=== PATIENT | female | born 1990 | race Two or more races ===

== ENCOUNTER 2025-01-31 08:00 | Outpatient (CLI) | payer OTHER ==
[~2025-01-31] VITALS: Ht 162.6 cm; Wt 56.7 kg
[~2025-01-31 08:00] MED LIST: CLARITIN5 MG PO
[2025-01-31 09:03] LABS: URINE APPEARANCE Cloudy; URINE BILIRRUBIN Negative (NEGATIVE); URINE BLOOD Large; URINE COLOR Orange; URINE GLUCOSE Negative (NEGATIVE); URINE KETONE Negative (NEGATIVE); URINE LEUKOCYTE Trace; URINE NITRATE Negative; URINE PROTEIN 30 (NEGATIVE); URINE UROBILINOGEN 0.2 E.U./dl
[2025-01-31 09:04] LABS: URINE BACTERIA 172.8 uL (0.0-1933); URINE EPITHELIAL CELLS 11.8 uL (0.0-38.8); URINE WBC 50.0 uL (0.0-23.2)
[2025-01-31 09:05] LABS: BASO % 0.1 % (0.1-1.2); EOS # 0.06 (0.04-0.54); EOS % 0.6 % (0.7-7.0); LYMPH # 1.10 (1.18-3.74); LYMPH % 11.3 % (19.3-53.1); MEAN PLATELET VOLUME 10.10 fl (9.4-12.4); MONO # 0.72 (0.24-0.82); MONO % 7.4 % (4.7-12.5); NEUT # 7.78 (1.56-6.13); NEUT % 80.0 % (34.0-71.1); RED CELL DISTRIBUTION WIDTH 15.9 % (11.6-14.4); URINE CAST 0.43 uL (0.0-1.40)
[2025-01-31 09:17] LABS: COVID-19 AG NEGATIVE (NEGATIVE)
[2025-01-31] MEDS ORDERED: VITAMIN D310 MC4 (09:29)
[2025-01-31] MEDS ORDERED: TOPROL XL50 M1 PO (09:29)
[2025-01-31 09:35] LABS: INR 1.11
[2025-01-31 09:38] LABS: BUN CREA RATIO 9.0 (7.0-25.0); CREATININE SERUM 0.97 mg/dL (0.55-1.02); GFR 65.74; GLUCOSE FASTING 103.0 mg/dL (65-100); OSMOLALITY SERUM 273.0 MOSM/KG (275-295)
[2025-01-31 09:41] VITALS: BP 118/81
[2025-01-31 12:08] LABS: RH POSITIVE
[2025-02-06] MEDS ORDERED: CEFAZOLIN SODIUM 1,000 MG VIAL ONE (10:38)
== END 2025-01-31 08:01 | disposition home or self-care (01) ==
LOC: LAB 08:00 → EDSTATUS 02-06 07:30 → SURH 02-06 07:30
PROVIDERS: ATTEND Urology
DX: C64.1 Malignant neoplasm of right kidney, except renal pelvis (principal)

== ENCOUNTER 2025-02-04 10:49 | Inpatient (IN) | payer OTHER ==
[~2025-02-04] VITALS: Ht 170.2 cm; Wt 63.5 kg
[~2025-02-04 10:49] MED LIST changes: +TOPROL XL50 M1 PO; +VITAMIN D310 MC4
--- NOTE | 2025-02-04 11:13 | NUR ---
PACIENTE FEMENINA ALERTA Y ORIENTADA X3, REFIERE ABUDANTE SANGRADO AL ORINAR Y VOMITOS Y DOLOR ABDOMINAL.
[2025-02-04] MEDS ORDERED: 0.9 % SODIUM CHLORIDE 1,000 ML IV ONE (11:30)
[2025-02-04] MEDS ORDERED: MORPHINE SULFATE 4 MG/ML VIAL IV ONE (11:30)
[2025-02-04] MEDS ORDERED: FAMOtidine 10 MG/ML (4ML VIAL) IV ONE (11:30)
--- NOTE | 2025-02-04 11:38 | NUR ---
SE ORIENTA PTE SOBRE TX A SEGUIR, LA MISMA REFIERE ENTENDER. SE MEDINA MUESTRA DE LAB, SE CANALIZA Y SE ADMINISTRA MED NEISHA ORDEN MEDICA
[2025-02-04 11:43] LABS: BASO % 0.2 % (0.1-1.2); EOS # 0.06 (0.04-0.54); EOS % 0.7 % (0.7-7.0); LYMPH # 1.11 (1.18-3.74); LYMPH % 12.1 % (19.3-53.1); MEAN PLATELET VOLUME 9.30 fl (9.4-12.4); MONO # 0.77 (0.24-0.82); MONO % 8.4 % (4.7-12.5); NEUT # 7.16 (1.56-6.13); NEUT % 78.2 % (34.0-71.1); RED CELL DISTRIBUTION WIDTH 16.1 % (11.6-14.4)
[2025-02-04 12:10] LABS: ALT/SGPT 23.0 U/L (12-78); AST/SGOT 10.0 U/L (15-37); BILIRUBIN TOTAL 0.4 mg/dL (0.3-1.2); BUN CREA RATIO 14.0 (7.0-25.0); CREATININE SERUM 1.0 mg/dL (0.55-1.02); GFR 63.47; GLOBULINA 4.7 G/DL (2.4-3.5); GLUCOSE FASTING 147.0 mg/dL (65-100); OSMOLALITY SERUM 275.0 MOSM/KG (275-295)
[2025-02-04 12:31] LABS: INR 1.14
[2025-02-04 14:20] LABS: URINE APPEARANCE Clear; URINE BILIRRUBIN Negative (NEGATIVE); URINE BLOOD Large; URINE COLOR Red; URINE GLUCOSE Negative (NEGATIVE); URINE KETONE Negative (NEGATIVE); URINE LEUKOCYTE Trace; URINE NITRATE Negative; URINE UROBILINOGEN 0.2 E.U./dl
[2025-02-04 14:24] LABS: URINE BACTERIA 766.7 uL (0.0-1933); URINE EPITHELIAL CELLS 10.1 uL (0.0-38.8); URINE WBC 32.1 uL (0.0-23.2)
[2025-02-04 14:30] LABS: URINE CAST 0.29 uL (0.0-1.40); URINE PROTEIN 300 (NEGATIVE); URINE RBC > 10558.9 uL (0.0-20.8)
[2025-02-04] MEDS ORDERED: KETOROLAC TROMETHAMINE 30 MG VIAL IV ONE (14:30)
[2025-02-04] MEDS ORDERED: POTASSIUM CHLORIDE 20MEQ/100ML H2O PB IV ONE (17:30)
[2025-02-04] MEDS ORDERED: ONDANSETRON HCL 4 MG in 0.9 % SODIUM CHLORIDE 50 ML IV PRN (17:30)
[2025-02-04] MEDS ORDERED: 0.9 % SODIUM CHLORIDE 1,000 ML IV SCH (17:30)
[2025-02-04] MEDS ORDERED: ACETAMINOPHEN 500 MG GEL..CAP PO PRN (17:30)
[2025-02-04] MEDS ORDERED: ONDANSETRON HCL 4 MG in 0.9 % SODIUM CHLORIDE 50 ML IV ONE (17:30)
[2025-02-04] MEDS ORDERED: FAMOTIDINE/PF 20 MG in 0.9 % SODIUM CHLORIDE 8 ML IV PUSH SCH (21:00)
[2025-02-04 21:04] VITALS: BP 150/83; O2SAT 99
[2025-02-05] VITALS (10 sets, daily range): BP systolic 116–133; BP diastolic 65–84; O2SAT 90–99
[2025-02-05] MEDS ORDERED: METOPROLOL SUCCINATE 50 MG TAB.SR.24H PO SCH (09:00)
[2025-02-05] MEDS ORDERED: IRON FUM,PS/FOLIC/BCOMP,C NO.9 1 CAP CAPSULE PO SCH (09:00)
[2025-02-05] MEDS ORDERED: MAGNESIUM HYDROXIDE 30 ML BLIST.PACK PO STA (13:53)
[2025-02-05 23:44] LABS: BASO % 0.2 % (0.1-1.2); EOS # 0.28 (0.04-0.54); EOS % 2.7 % (0.7-7.0); LYMPH # 1.38 (1.18-3.74); LYMPH % 13.4 % (19.3-53.1); MEAN PLATELET VOLUME 10.60 fl (9.4-12.4); MONO # 0.91 (0.24-0.82); MONO % 8.8 % (4.7-12.5); NEUT # 7.68 (1.56-6.13); NEUT % 74.5 % (34.0-71.1); RED CELL DISTRIBUTION WIDTH 16.1 % (11.6-14.4)
[2025-02-05 23:59] LABS: BUN CREA RATIO 12.0 (7.0-25.0); CREATININE SERUM 0.91 mg/dL (0.55-1.02); GFR 70.76; GLUCOSE FASTING 98.0 mg/dL (65-100); OSMOLALITY SERUM 277.0 MOSM/KG (275-295)
[2025-02-06] VITALS (7 sets, daily range): BP systolic 126–133; BP diastolic 80–82; O2SAT 93–98
[2025-02-06] MEDS ORDERED: SUGAMMADEX SODIUM 200 MG/2 ML VIAL IV ONE ×3 (12:07→20:15)
[2025-02-06] MEDS ORDERED: HEMOSTATIC MATRIX 1 KIT KIT TOP ONE (12:08)
[2025-02-06] MEDS ORDERED: SURGIFLO APPLICATOR 1 EACH APPL TOP ONE ×2 (12:08→20:15)
[2025-02-06] MEDS ORDERED: BUPIVACAINE HCL/MPF 0.5% 30ML VIAL ONE (12:08)
[2025-02-06] MEDS ORDERED: CEFAZOLIN SODIUM 1,000 MG VIAL IV ONE (14:30)
[2025-02-06] MEDS ORDERED: MORPHINE SULFATE 4 MG/ML VIAL IV ONE ×2 (20:00→20:40)
[2025-02-06 20:31] LABS: BASO % 0.2 % (0.1-1.2); EOS # 0.02 (0.04-0.54); EOS % 0.1 % (0.7-7.0); LYMPH # 0.89 (1.18-3.74); LYMPH % 6.6 % (19.3-53.1); MEAN PLATELET VOLUME 9.50 fl (9.4-12.4); MONO # 0.62 (0.24-0.82); MONO % 4.6 % (4.7-12.5); NEUT # 11.82 (1.56-6.13); NEUT % 88.0 % (34.0-71.1); RED CELL DISTRIBUTION WIDTH 16.3 % (11.6-14.4)
[2025-02-06] MEDS ORDERED: FAMOTIDINE/PF 20 MG/2 ML VIAL ONE (21:06)
[2025-02-06 21:13] LABS: BUN CREA RATIO 10.0 (7.0-25.0); CREATININE SERUM 1.18 mg/dL (0.55-1.02); GFR 52.43; GLUCOSE FASTING 124.0 mg/dL (65-100); OSMOLALITY SERUM 286.0 MOSM/KG (275-295)
[2025-02-06] MEDS ORDERED: GABAPENTIN 300 MG CAPSULE PO SCH (21:59)
[2025-02-06] MEDS ORDERED: MORPHINE SULFATE 4 MG/ML CARTRIDGE IV PRN (22:00)
[2025-02-07] VITALS (10 sets, daily range): BP systolic 101–116; BP diastolic 64–76; O2SAT 95–99
[2025-02-07] MEDS ORDERED: ACETAMINOPHEN 500 MG GEL..CAP PO SCH
[2025-02-07 13:41] LABS: BASO % 0.1 % (0.1-1.2); EOS # 0.18 (0.04-0.54); EOS % 1.7 % (0.7-7.0); LYMPH # 1.31 (1.18-3.74); LYMPH % 12.5 % (19.3-53.1); MEAN PLATELET VOLUME 10.10 fl (9.4-12.4); MONO # 0.72 (0.24-0.82); MONO % 6.9 % (4.7-12.5); NEUT # 8.16 (1.56-6.13); NEUT % 78.2 % (34.0-71.1); RED CELL DISTRIBUTION WIDTH 16.8 % (11.6-14.4)
[2025-02-07 14:21] LABS: BUN CREA RATIO 12.0 (7.0-25.0); CREATININE SERUM 1.07 mg/dL (0.55-1.02); GFR 58.7; GLUCOSE FASTING 125.0 mg/dL (65-100); OSMOLALITY SERUM 285.0 MOSM/KG (275-295)
[2025-02-07] MEDS ORDERED: MORPHINE SULFATE 4 MG/ML CARTRIDGE IV PRN (18:45)
[2025-02-07] MEDS ORDERED: POLYETHYLENE GLYCOL 3350 17 GM BLIST.PACK PO SCH (21:00)
[2025-02-08] VITALS (7 sets, daily range): BP systolic 107–126; BP diastolic 67–75; O2SAT 98–100
[2025-02-08] MEDS ORDERED: AMINO ACIDS/PROTEIN HYDROLYS 30 ML BLIST.PACK PO SCH (09:00)
[2025-02-08] MEDS ORDERED: ENOXAPARIN SODIUM 40 MG/0.4 ML SYRINGE SUBCUTANEO STA (14:10)
[2025-02-09] VITALS (9 sets, daily range): BP systolic 116–152; BP diastolic 73–82; O2SAT 90–100
[2025-02-09] MEDS ORDERED: ENOXAPARIN SODIUM 40 MG/0.4 ML SYRINGE SUBCUTANEO SCH (09:00)
[2025-02-10] VITALS (8 sets, daily range): BP systolic 134; BP diastolic 66–89; O2SAT 88–100
[2025-02-10 08:14] LABS: BASO % 0.2 % (0.1-1.2); EOS # 0.30 (0.04-0.54); EOS % 3.6 % (0.7-7.0); LYMPH # 1.59 (1.18-3.74); LYMPH % 19.2 % (19.3-53.1); MEAN PLATELET VOLUME 10.30 fl (9.4-12.4); MONO # 0.80 (0.24-0.82); MONO % 9.7 % (4.7-12.5); NEUT # 5.50 (1.56-6.13); NEUT % 66.7 % (34.0-71.1); RED CELL DISTRIBUTION WIDTH 17.2 % (11.6-14.4)
[2025-02-10 08:44] LABS: BUN CREA RATIO 18.0 (7.0-25.0); CREATININE SERUM 0.74 mg/dL (0.55-1.02); GFR 89.84; GLUCOSE FASTING 78.0 mg/dL (65-100); OSMOLALITY SERUM 288.0 MOSM/KG (275-295)
[2025-02-10] MEDS ORDERED: MORPHINE SULFATE 4 MG/ML CARTRIDGE IV PRN (22:15)
[2025-02-11] VITALS (9 sets, daily range): BP systolic 129–140; BP diastolic 74–84; O2SAT 90–100
[2025-02-11 09:26] LABS: ABG PH 7.423 (7.35-7.45); ABG PO2 81.8 mmHg (80-100); BICARBONATE 24.2 mmol/l (23-25)
[2025-02-11 09:27] LABS: o2 21 %
[2025-02-11 12:36] LABS: BASO % 0.2 % (0.1-1.2); EOS # 0.23 (0.04-0.54); EOS % 2.6 % (0.7-7.0); LYMPH # 1.18 (1.18-3.74); LYMPH % 13.2 % (19.3-53.1); MEAN PLATELET VOLUME 10.00 fl (9.4-12.4); MONO # 0.66 (0.24-0.82); MONO % 7.4 % (4.7-12.5); NEUT # 6.78 (1.56-6.13); NEUT % 76.0 % (34.0-71.1); RED CELL DISTRIBUTION WIDTH 17.0 % (11.6-14.4)
[2025-02-11 14:06] LABS: ALT/SGPT 39.0 U/L (12-78); AST/SGOT 28.0 U/L (15-37); BILIRUBIN TOTAL 0.42 mg/dL (0.3-1.2); BUN CREA RATIO 17.0 (7.0-25.0); CREATININE SERUM 0.6 mg/dL (0.55-1.02); GFR 114.43; GLOBULINA 3.4 G/DL (2.4-3.5); GLUCOSE FASTING 79.0 mg/dL (65-100); OSMOLALITY SERUM 281.0 MOSM/KG (275-295)
[2025-02-12] VITALS (9 sets, daily range): BP systolic 119–126; BP diastolic 69–79; O2SAT 90–100
[2025-02-12] MEDS ORDERED: MAGNESIUM SULFATE IN WATER 50 ML IV NR (08:00)
[2025-02-12] MEDS ORDERED: MORPHINE SULFATE 4 MG/ML VIAL IV PRN (22:15)
[2025-02-13 01:00] VITALS: O2SAT 99
[2025-02-13 02:18] VITALS: BP 128/68; O2SAT 98
[2025-02-13 08:22] VITALS: BP 127/83; O2SAT 97
[2025-02-13 09:02] VITALS: O2SAT 99
== END 2025-02-13 12:29 | disposition home or self-care (01) | DRG 657 ==
LOC: ER 10:49 → MEDI 17:55 → MEDJ 17:55 → MEDI 02-05 13:34
PROVIDERS: General Practice; Internal Medicine Geriatric Medicine; ADMIT Urology; ATTEND Urology
PROC: B246ZZZ Ultrasonography of Right and Left Heart (ICD-10-PCS; 2025-02-04)
PROC: 8E0ZXY6 Isolation (ICD-10-PCS; 2025-02-04)
PROC: 4A12X4Z Monitoring of Cardiac Electrical Activity, External Approach (ICD-10-PCS; 2025-02-04)
PROC: 30233N1 Transfusion of Nonautologous Red Blood Cells into Peripheral Vein, Percutaneous Approach (ICD-10-PCS; 2025-02-05)
PROC: 07BC4ZZ Excision of Pelvis Lymphatic, Percutaneous Endoscopic Approach (ICD-10-PCS; 2025-02-06)
PROC: 8E0W4CZ Robotic Assisted Procedure of Trunk Region, Percutaneous Endoscopic Approach (ICD-10-PCS; 2025-02-06)
PROC: 0TT04ZZ Resection of Right Kidney, Percutaneous Endoscopic Approach (ICD-10-PCS; principal; 2025-02-06 14:15)
PROC: 4A033R1 Measurement of Arterial Saturation, Peripheral, Percutaneous Approach (ICD-10-PCS; 2025-02-11)
DX: C64.1 Malignant neoplasm of right kidney, except renal pelvis (principal); I47.29 Other ventricular tachycardia; J93.9 Pneumothorax, unspecified; J95.89 Other postprocedural complications and disorders of respiratory system, not elsewhere classified; R31.9 Hematuria, unspecified; R68.89 Other general symptoms and signs; Z82.49 Family history of ischemic heart disease and other diseases of the circulatory system; Z95.810 Presence of automatic (implantable) cardiac defibrillator
CPT/HCPCS: 50545; 93306; 93228; 36430; 82805; 36600; S2900

== ENCOUNTER 2025-02-18 16:38 | Inpatient (IN) | payer OTHER ==
[~2025-02-18] VITALS: Ht 162.6 cm; Wt 58.1 kg
--- NOTE | 2025-02-18 17:20 | NUR ---
PACIENTE FEMINA DE 34 ANOS DE EDAD ALERTA Y ORIENTADA X3 EN COMPANIA DE FAMILIAR. PACIENTE REFIERE SENTIR TAMRA DOLOR DE ESPALDA DESDE HACE VARIOS GERARDO QUE SE GAMA INTENSIFICADO EL WESLEY DE [place]Y. PACIENTE FUE OPERADA EL WESLEY [address] PALACIOS DE FEI NEFROCTOMIA RADICAL DERECHA. SE MONITOREAN S/V Y SE UBICA PACIENTE.
[2025-02-18] MEDS ORDERED: MORPHINE SULFATE 4 MG/ML CARTRIDGE IV ONE (18:15)
[2025-02-18] MEDS ORDERED: 0.9 % SODIUM CHLORIDE 1,000 ML IV ONE (18:15)
[2025-02-18 18:43] LABS: BASO % 0.4 % (0.1-1.2); EOS # 0.27 (0.04-0.54); EOS % 2.4 % (0.7-7.0); LYMPH # 1.71 (1.18-3.74); LYMPH % 15.1 % (19.3-53.1); MEAN PLATELET VOLUME 9.20 fl (9.4-12.4); MONO # 0.68 (0.24-0.82); MONO % 6.0 % (4.7-12.5); NEUT # 8.51 (1.56-6.13); NEUT % 75.3 % (34.0-71.1); RED CELL DISTRIBUTION WIDTH 17.6 % (11.6-14.4)
[2025-02-18 18:45] LABS: ERYTHROCYTE SEDIMENTATION RATE 116 mm/hr (0-20)
--- NOTE | 2025-02-18 18:50 | NUR ---
SE EDUCA A PACIENTE SOBRE TRATAMIENTO MEDICO EL CUAL REFIERE ENTENDER, SE REALIZA MEDINA DE MUESTRAS NEISHA ORDEN MEDICA Y SE ADMINISTRA MEDICAMENTOS BAJO MEDIDAS ASEPTICAS Y NEISHA ORDEN MEDICA.
[2025-02-18 19:10] LABS: INR 1.1
[2025-02-18 19:18] LABS: ALT/SGPT 25.0 U/L (12-78); AST/SGOT 11.0 U/L (15-37); BILIRUBIN TOTAL 0.35 mg/dL (0.3-1.2); BUN CREA RATIO 18.0 (7.0-25.0); CREATININE SERUM 0.9 mg/dL (0.55-1.02); GFR 71.67; GLOBULINA 5.0 G/DL (2.4-3.5); GLUCOSE FASTING 104.0 mg/dL (65-100); OSMOLALITY SERUM 283.0 MOSM/KG (275-295)
[2025-02-18] MEDS ORDERED: 0.9 % SODIUM CHLORIDE 1,000 ML IV SCH (19:45)
[2025-02-18] MEDS ORDERED: ENOXAPARIN SODIUM 40 MG/0.4 ML SYRINGE SUBCUTANEO SCH (19:49)
[2025-02-18] MEDS ORDERED: MORPHINE SULFATE 2 MG/ML SYRINGE IV PRN (20:00)
[2025-02-18] MEDS ORDERED: ONDANSETRON HCL 2 MG/ML VIAL IV PRN (20:00)
[2025-02-18] MEDS ORDERED: GABAPENTIN 300 MG CAPSULE PO SCH (21:00)
[2025-02-18] MEDS ORDERED: FAMOTIDINE/PF 20 MG/2 ML VIAL IV SCH (21:00)
[2025-02-18] MEDS ORDERED: LIDOCAINE 1 EACH ADH..PATCH TOP SCH (21:00)
[2025-02-18 21:08] LABS: URINE APPEARANCE Clear; URINE BILIRRUBIN Negative (NEGATIVE); URINE COLOR Yellow; URINE GLUCOSE Negative (NEGATIVE); URINE KETONE Negative (NEGATIVE); URINE LEUKOCYTE Negative; URINE NITRATE Negative; URINE PROTEIN Negative (NEGATIVE); URINE UROBILINOGEN 0.2 E.U./dl
[2025-02-18 21:13] LABS: URINE BACTERIA 188.2 uL (0.0-1933); URINE EPITHELIAL CELLS 3.5 uL (0.0-38.8); URINE RBC 28.4 uL (0.0-20.8); URINE WBC 6.1 uL (0.0-23.2)
[2025-02-18] MEDS ORDERED: PIPERACILLIN/TAZOBACTAM SODIUM 3.375 GM in 0.9 % SODIUM CHLORIDE 100 ML IV SCH (21:16)
[2025-02-18] MEDS ORDERED: ORPHENADRINE CITRATE 30 MG/ML AMPUL IM STA (21:28)
[2025-02-18 21:35] LABS: URINE BLOOD TRACE; URINE CAST 0.14 uL (0.0-1.40)
[2025-02-19 02:44] VITALS: BP 118/65
[2025-02-19 03:58] VITALS: BP 102/66; O2SAT 100
[2025-02-19] MEDS ORDERED: METOPROLOL SUCCINATE 50 MG TAB.SR.24H PO SCH (09:00)
[2025-02-19 10:37] LABS: ALT/SGPT 22.0 U/L (12-78); AST/SGOT 11.0 U/L (15-37); BILIRUBIN TOTAL 0.35 mg/dL (0.3-1.2); BUN CREA RATIO 15.0 (7.0-25.0); CREATININE SERUM 0.82 mg/dL (0.55-1.02); GFR 79.8; GLOBULINA 4.0 G/DL (2.4-3.5); GLUCOSE FASTING 92.0 mg/dL (65-100); OSMOLALITY SERUM 279.0 MOSM/KG (275-295); TSH 2.14 uIU/mL (0.358-3.74)
[2025-02-19 10:50] VITALS: BP 130/80; O2SAT 98
[2025-02-19 11:05] LABS: ABG PH 7.462 (7.35-7.45); ABG PO2 98.8 mmHg (80-100); BICARBONATE 23.1 mmol/l (23-25)
[2025-02-19 11:06] LABS: o2 21 %
[2025-02-19 16:00] VITALS: BP 119/75; O2SAT 96
[2025-02-19] MEDS ORDERED: GABAPENTIN 600 MG TABLET PO ONE (17:31)
[2025-02-19] MEDS ORDERED: LIDOCAINE 1 EACH ADH..PATCH TOP SCH (21:00)
[2025-02-19] MEDS ORDERED: GABAPENTIN 600 MG TABLET PO SCH (21:00)
[2025-02-19] MEDS ORDERED: ORPHENADRINE CITRATE 30 MG/ML AMPUL IM SCH (21:00)
[2025-02-20] VITALS: BP 106/71; O2SAT 95
[2025-02-20 07:23] LABS: BASO % 0.4 % (0.1-1.2); EOS # 0.31 (0.04-0.54); EOS % 3.6 % (0.7-7.0); LYMPH # 1.54 (1.18-3.74); LYMPH % 18.0 % (19.3-53.1); MEAN PLATELET VOLUME 10.30 fl (9.4-12.4); MONO # 0.79 (0.24-0.82); MONO % 9.3 % (4.7-12.5); NEUT # 5.81 (1.56-6.13); NEUT % 68.0 % (34.0-71.1); RED CELL DISTRIBUTION WIDTH 17.6 % (11.6-14.4)
[2025-02-20 08:00] VITALS: BP 133/85; O2SAT 96
[2025-02-20 09:27] LABS: MYCOPLASMA PNEUMONIAE IGM NON REACTIVE (NO REACTIVE)
[2025-02-20] MEDS ORDERED: MORPHINE SULFATE 4 MG/ML CARTRIDGE IV PRN (12:00)
[2025-02-20 16:00] VITALS: BP 117/74; O2SAT 96
[2025-02-20] MEDS ORDERED: ORPHENADRINE CITRATE 30 MG/ML AMPUL IM STA (20:13)
[2025-02-20] MEDS ORDERED: DEXAMETHASONE SODIUM PHOSPHATE 4 MG/ML VIAL IV SCH (20:35)
[2025-02-20] MEDS ORDERED: ACETAMINOPHEN 500 MG GEL..CAP PO PRN (20:45)
[2025-02-20] MEDS ORDERED: ORPHENADRINE CITRATE 100 MG TABLET PO SCH (21:00)
[2025-02-20] MEDS ORDERED: LIDOCAINE 1 EACH ADH..PATCH TOP SCH (21:00)
[2025-02-21] VITALS (8 sets, daily range): BP systolic 95–127; BP diastolic 62–84; O2SAT 97–100
[2025-02-21] MEDS ORDERED: MORPHINE SULFATE 4 MG/ML CARTRIDGE IV STA (00:58)
[2025-02-21] MEDS ORDERED: NALOXONE HCL 0.4 MG/ML AMPUL IV PRN (01:45)
[2025-02-21] MEDS ORDERED: MORPHINE SULFATE 4 MG/ML CARTRIDGE IV PRN (01:45)
[2025-02-21] MEDS ORDERED: ORPHENADRINE CITRATE 30 MG/ML AMPUL IM SCH (09:00)
[2025-02-21] MEDS ORDERED: POLYETHYLENE GLYCOL 3350 17 GM BLIST.PACK PO SCH (21:00)
[2025-02-22] VITALS (9 sets, daily range): BP systolic 111–125; BP diastolic 69–71; O2SAT 98–100
[2025-02-22 07:04] LABS: BASO % 0.1 % (0.1-1.2); EOS # 0.00 (0.04-0.54); EOS % 0.0 % (0.7-7.0); LYMPH # 0.82 (1.18-3.74); LYMPH % 7.0 % (19.3-53.1); MEAN PLATELET VOLUME 10.00 fl (9.4-12.4); MONO # 0.35 (0.24-0.82); MONO % 3.0 % (4.7-12.5); NEUT # 10.56 (1.56-6.13); NEUT % 89.5 % (34.0-71.1); RED CELL DISTRIBUTION WIDTH 17.3 % (11.6-14.4)
[2025-02-22 07:40] LABS: ALT/SGPT 14.0 U/L (12-78); AST/SGOT 6.0 U/L (15-37); BILIRUBIN TOTAL 0.54 mg/dL (0.3-1.2); BUN CREA RATIO 18.0 (7.0-25.0); CREATININE SERUM 0.79 mg/dL (0.55-1.02); GFR 83.31; GLOBULINA 3.6 G/DL (2.4-3.5); GLUCOSE FASTING 129.0 mg/dL (65-100); OSMOLALITY SERUM 285.0 MOSM/KG (275-295)
[2025-02-22] MEDS ORDERED: LACTOBACILLUS ACIDOPHILUS 1 CAP CAP PO SCH (09:00)
[2025-02-22] MEDS ORDERED: DEXAMETHASONE SODIUM PHOSPHATE 4 MG/ML VIAL IV SCH (18:00)
[2025-02-22] MEDS ORDERED: SENNA/DOCUSATE SODIUM 1 TAB TABLET PO SCH (21:00)
[2025-02-22] MEDS ORDERED: MORPHINE SULFATE 4 MG/ML CARTRIDGE IV PRN (23:45)
[2025-02-23] VITALS (10 sets, daily range): BP systolic 103–154; BP diastolic 62–82; O2SAT 97–100
[2025-02-23] MEDS ORDERED: MORPHINE SULFATE 2 MG/ML CARTRIDGE IV PRN (08:30)
[2025-02-23] MEDS ORDERED: MORPHINE SULFATE 4 MG/ML CARTRIDGE IV PRN (17:30)
[2025-02-23] MEDS ORDERED: ORPHENADRINE CITRATE 30 MG/ML AMPUL IM PRN (17:30)
[2025-02-23] MEDS ORDERED: LIDOCAINE 1 EACH ADH..PATCH TOP SCH (21:00)
[2025-02-24 01:43] VITALS: BP 149/78; O2SAT 100
[2025-02-24 05:40] VITALS: O2SAT 100
[2025-02-24 08:25] VITALS: BP 122/63; O2SAT 97
[2025-02-24 11:17] VITALS: O2SAT 100
[2025-02-24] MEDS ORDERED: NORTRIPTYLINE 10 MG PO SCH (21:00)
[2025-02-25] VITALS (8 sets, daily range): BP systolic 110–159; BP diastolic 70–75; O2SAT 96–100
[2025-02-25 06:13] LABS: BASO % 0.1 % (0.1-1.2); EOS # 0.00 (0.04-0.54); EOS % 0.0 % (0.7-7.0); LYMPH # 0.79 (1.18-3.74); LYMPH % 8.2 % (19.3-53.1); MEAN PLATELET VOLUME 10.20 fl (9.4-12.4); MONO # 0.45 (0.24-0.82); MONO % 4.7 % (4.7-12.5); NEUT # 8.27 (1.56-6.13); NEUT % 85.9 % (34.0-71.1); RED CELL DISTRIBUTION WIDTH 16.8 % (11.6-14.4)
[2025-02-25 06:58] LABS: ALT/SGPT 25.0 U/L (12-78); AST/SGOT 10.0 U/L (15-37); BILIRUBIN TOTAL 0.37 mg/dL (0.3-1.2); BUN CREA RATIO 22.0 (7.0-25.0); CREATININE SERUM 0.82 mg/dL (0.55-1.02); GFR 79.8; GLOBULINA 3.4 G/DL (2.4-3.5); GLUCOSE FASTING 127.0 mg/dL (65-100); OSMOLALITY SERUM 285.0 MOSM/KG (275-295)
[2025-02-25] MEDS ORDERED: MORPHINE SULFATE 4 MG/ML CARTRIDGE IV PRN (20:30)
[2025-02-26] VITALS (7 sets, daily range): BP systolic 127–150; BP diastolic 72–82; O2SAT 96–99
[2025-02-26] MEDS ORDERED: GABAPENTIN 600 MG TABLET PO NR (12:15)
[2025-02-26] MEDS ORDERED: LIDOCAINE 1 EACH ADH..PATCH TOP STA (12:20)
[2025-02-26] MEDS ORDERED: CLONAZEPAM 0.5 MG TABLET PO STA (12:22)
[2025-02-26] MEDS ORDERED: CLONAZEPAM 0.5 MG TABLET PO PRN (12:30)
[2025-02-26] MEDS ORDERED: EMOLLIENT COMBINATION NO.92 2.5 OZ BOTTLE TOP SCH (13:00)
[2025-02-27 00:40] VITALS: BP 112/73; O2SAT 97
[2025-02-27 01:51] VITALS: O2SAT 99
[2025-02-27 08:00] VITALS: BP 142/79; O2SAT 98
[2025-02-27] MEDS ORDERED: LIDOCAINE 1 EACH ADH..PATCH TOP SCH (09:00)
[2025-02-27 17:36] VITALS: BP 119/72; O2SAT 98
[2025-02-27] MEDS ORDERED: POLYETHYLENE GLYCOL 3350 17 GM BLIST.PACK PO SCH (21:00)
[2025-02-27] MEDS ORDERED: MORPHINE SULFATE 4 MG/ML CARTRIDGE IV PRN (22:00)
[2025-02-28 01:16] VITALS: BP 120/74; O2SAT 100
[2025-02-28 06:19] VITALS: O2SAT 49
[2025-02-28 10:54] VITALS: BP 124/74; O2SAT 98
[2025-02-28] MEDS ORDERED: NORFLEX100MG PO (14:46)
[2025-02-28] MEDS ORDERED: LIDOCAINE PAIN1 EACH TOP (14:46)
[2025-02-28] MEDS ORDERED: FENTANYL1 EAC7 TD (14:46)
[2025-02-28] MEDS ORDERED: CLONAZEPAM0.5 MG PO (14:46)
[2025-02-28] MEDS ORDERED: NEURONTIN600 MG PO (14:46)
[2025-02-28] MEDS ORDERED: TOPROL XL50 M1 PO (14:46)
[2025-02-28] MEDS ORDERED: LOVENOX40 MG/0.4 SUBCUTANEO (14:46)
[2025-02-28] MEDS ORDERED: DEXAMETHASONE6 MG PO (14:46)
[2025-02-28] MEDS ORDERED: TRAMADOL HCL50 MG PO (14:46)
[2025-02-28 16:00] VITALS: BP 110/70; O2SAT 99
== END 2025-02-28 18:25 | disposition home or self-care (01) | DRG 194 ==
LOC: ER 16:38 → SURG 20:04 → SURH 02-20 10:53
PROVIDERS: General Practice; Internal Medicine; Internal Medicine Endocrinology, Diabetes & Metabolism; Internal Medicine Infectious Disease; ADMIT Internal Medicine Geriatric Medicine; ATTEND Internal Medicine Geriatric Medicine
PROC: BB24ZZZ Computerized Tomography (CT Scan) of Bilateral Lungs (ICD-10-PCS; 2025-02-18)
PROC: BW21ZZZ Computerized Tomography (CT Scan) of Abdomen and Pelvis (ICD-10-PCS; 2025-02-18)
PROC: BR33ZZZ Magnetic Resonance Imaging (MRI) of Lumbar Disc(s) (ICD-10-PCS; principal; 2025-02-19)
PROC: CP1Z1ZZ Planar Nuclear Medicine Imaging of Musculoskeletal System, All using Technetium 99m (Tc-99m) (ICD-10-PCS; 2025-02-19)
PROC: 8E0ZXY6 Isolation (ICD-10-PCS; 2025-02-20)
PROC: 4A12X4Z Monitoring of Cardiac Electrical Activity, External Approach (ICD-10-PCS; 2025-02-21)
PROC: BR33ZZZ Magnetic Resonance Imaging (MRI) of Lumbar Disc(s) (ICD-10-PCS; 2025-02-28)
DX: J18.9 Pneumonia, unspecified organism (principal); C64.1 Malignant neoplasm of right kidney, except renal pelvis; I47.29 Other ventricular tachycardia; C79.51 Secondary malignant neoplasm of bone; D72.828 Other elevated white blood cell count; M54.16 Radiculopathy, lumbar region; E83.52 Hypercalcemia; G89.3 Neoplasm related pain (acute) (chronic); F43.20 Adjustment disorder, unspecified; Z95.810 Presence of automatic (implantable) cardiac defibrillator
CPT/HCPCS: 72148; 72158